=== PATIENT | female | born 1970 ===

== ENCOUNTER 2018-06-08 09:02 | Outpatient (CLI) | payer OTHER | END 2018-06-08 09:24 | disposition home or self-care (01) | LOC: LAB 09:02 | DX: E03.8 Other specified hypothyroidism (principal); R42 Dizziness and giddiness; Z00.00 Encounter for general adult medical examination without abnormal findings ==

== ENCOUNTER → 2019-01-13 | Emergency (ER) | payer OTHER ==
[~2019-01-13] VITALS: Ht 167.6 cm; Wt 108.9 kg
[~2019-01-13] MED LIST: SYNTHROID50 MCG PO
== END | disposition home or self-care (01) ==
LOC: ER 13:14
DX: M67.432 Ganglion, left wrist (principal)

== ENCOUNTER 2019-02-07 12:13 | Outpatient (CLI) | payer OTHER | END 2019-02-07 12:25 | disposition home or self-care (01) | LOC: LAB 12:13 | DX: Z12.11 Encounter for screening for malignant neoplasm of colon (principal) ==

== ENCOUNTER 2019-04-26 11:24 | Outpatient (CLI) | payer OTHER | END 2019-04-26 11:42 | disposition home or self-care (01) | LOC: LAB 11:24 | DX: M25.541 Pain in joints of right hand (principal); M25.542 Pain in joints of left hand; M25.532 Pain in left wrist; Z11.3 Encounter for screening for infections with a predominantly sexual mode of transmission; Z02.83 Encounter for blood-alcohol and blood-drug test; E03.8 Other specified hypothyroidism ==